=== PATIENT | male | born 1950 | race Caucasian/White ===

== ENCOUNTER 2019-07-31 10:12 | Outpatient (CLI) | payer MEDICARE, SELFPAY ==
[2019-07-31 10:49] LABS: Hematocrit 41.9 % (42.0-52.0); Hemoglobin 13.5 g/dL (14.0-18.0)
[2019-07-31 10:56] LABS: Estimated Glomerular Filt Rate 50; Glucose 89 mg/dL (75-110)
== END 2019-07-31 10:13 | disposition home or self-care (01) ==
PROVIDERS: PCP Internal Medicine; Visit Provider Orthopaedic Surgery
DX: Z01.818 Encounter for other preprocedural examination (principal); M17.0 Bilateral primary osteoarthritis of knee; I10 Essential (primary) hypertension; E78.5 Hyperlipidemia, unspecified; Z87.891 Personal history of nicotine dependence
CPT/HCPCS: 36415; 82040; 82565; 82947; 85014; 85018

== ENCOUNTER 2019-08-08 09:51 | Outpatient (CLI) | payer MEDICARE, SELFPAY ==
--- NOTE | 2019-08-08 10:50 | ECG_ITS ---
Measurements Intervals [place] Rate: 50 P: 72 KS: 180 QRS: -10 QRSD: 102 T: 69 QT: 401 QTc: 367 Interpretive Statements SINUS BRADYCARDIA BORDERLINE ST-T WAVE ABNORMALITY- HIGH LATERAL LEADS BASELINE ARTIFACT- I, II, III, AVR, AVL, AVF BORDERLINE ECG Electronically Signed On 08-08-2019 11:32:32 CDT by Jeremiah Rahman D.O.
[2019-08-08 11:15] LABS: Basophils Percent Auto 0.5 % (0.2-1.2); Eosinophils Absolute Auto 0.1 K/mm3 (0-0.3); Eosinophils Percent Auto 1.5 % (0-4.4); Hematocrit 41.8 % (42.0-52.0); Hemoglobin 13.6 g/dL (14.0-18.0); Immature Granulocyte Absolute 0.02 K/mm3 (0.00-0.031); Immature Granulocyte Percent A 0.3 % (0-0.5); Lymphocytes Absolute Auto 1.44 K/mm3 (0.9-3.2); Lymphocytes Percent Auto 19.4 % (18.3-44.2); Mean Corpuscular HGB Conc 32.5 g/dl (32-36); Mean Corpuscular Hemoglobin 30.3 pg (26-34); Mean Corpuscular Volume 93.1 fl (80-100); Mean Platelet Volume 10.7 fl (7.4-10.4); Monocytes Absolute Auto 0.5 K/mm3 (0.1-0.6); Monocytes Percent Auto 6.2 % (2.6-8.5); Neutrophils Absolute Auto 5.3 K/mm3 (1.3-6.7); Neutrophils Percent Auto 72.1 % (45.5-73.1); Platelet Count Result 259 k/mm3 (150-375); Red Blood Count 4.49 M/mm3 (4.6-6.20); Red Cell Distribution Width 12.9 % (11.5-14.5); White Blood Count 7.4 K/mm3 (4.5-10.0)
[2019-08-08 11:26] LABS: Hemoglobin A1C 5.5 % (<5.7)
[2019-08-08 11:27] LABS: Urine Cotinine POSITIVE
== END 2019-08-08 09:52 | disposition home or self-care (01) ==
LOC: ANHSURGERY 09:53
PROVIDERS: PCP Internal Medicine; Visit Provider Orthopaedic Surgery
DX: Z01.818 Encounter for other preprocedural examination (principal); M17.12 Unilateral primary osteoarthritis, left knee; I10 Essential (primary) hypertension; Z79.899 Other long term (current) drug therapy
CPT/HCPCS: 36415; 80307; 83036; 85025; 87081; 93005

== ENCOUNTER 2020-06-11 06:58 | Outpatient (CLI) | payer MEDICARE, SELFPAY ==
--- NOTE | ~2020-06-11 | CT_ITS ---
EXAMINATION: CT chest high resolution wo ma DATE: 06/11/2020 07:25 INDICATION: Solitary pulmonary nodule TECHNIQUE: Computed tomography (CT) of the chest was performed without intravenous contrast. The dose -length product was 290.33 mGy-cm. Automated exposure control and iterative reconstruction technique were employed. COMPARISON: Comparison to multiple prior studies sequentially, with oldest reviewed study dated 08/08. FINDINGS: There is atherosclerosis of the aorta. There are calcified mediastinal lymph nodes, consist ent with chronic granulomatous disease. No thoracic lymphadenopathy. There is coronary atherosclerosi s. Heart size normal. No significant pleural or pericardial effusion. There are gallstones. There are bilateral calcified pleural plaques, consistent with previous asbestos exposure. Possible subtle int erval enlargement of left lower lobe nodule measuring 9 x 8 mm compared with 8 x 7 mm on 08/08/2017, a lthough this could be due to technique. No focal airspace consolidation. Calcified granuloma in the r ight middle lobe. No new pulmonary nodules or masses. There are surgical changes in the right humeral head. Moderate thoracic spondylosis with accentuated kyphosis. Generalized demineralization. IMPRESSION: 1. Possible subtle enlargement of left lower lobe noncalcified nodule measuring 9 x 8 mm compared wit h 8 x 7 mm on 08/08/2017. Alternatively, this could be related to technical differences. No significan t alteration in appearance on coronal reconstructions. Consider correlation with pet/CT scan. 2:: Calcified bilateral pleural plaques, consistent with previous asbestos exposure. 3: Cholelithiasis. Reviewed, dictated and finalized at location A. IMPRESSION: 1. Possible subtle enlargement of left lower lobe noncalcified nodule measuring 9 x 8 mm compared with 8 x 7 mm on 08/08/2017. Alternatively, this could be rel ated to technical differences. No significant alteration in appearance on coron al reconstructions. Consider correlation with pet/CT scan. 2:: Calcified bilateral pleural plaques, consistent with previous asbestos expo sure. 3: Cholelithiasis.
== END 2020-06-11 06:59 | disposition home or self-care (01) ==
PROVIDERS: PCP Internal Medicine; Visit Provider Internal Medicine
DX: R91.1 Solitary pulmonary nodule (principal); K80.20 Calculus of gallbladder without cholecystitis without obstruction
CPT/HCPCS: 71250

== ENCOUNTER 2021-07-23 07:27 | Outpatient (CLI) | payer MEDICARE, SELFPAY ==
--- NOTE | ~2021-07-23 | CT_ITS ---
EXAMINATION: CT lung screening DATE: 07/23/2021 07:46 INDICATION: Personal history of nicotine dependence, current smoker with 90 to pack year history TECHNIQUE: Computed tomography (CT) of the chest was performed without intravenous contrast. The dose -length product (DLP) was 143.57 mGy-cm. Automated exposure control and iterative reconstruction tech [employer] were employed. COMPARISON: 06/11/2020, 08/08/2017 FINDINGS: There is mild emphysema. Mild atelectasis is noted in the lungs. A 9 mm nodule of the left lower lobe is minimally changed since the 2018 comparison. The lungs are free of focal airspace opaci ties. There is no pleural effusion or pneumothorax. No pathologically enlarged thoracic lymph nodes a re identified. The heart size is normal. Calcified pulmonary nodules and calcified mediastinal lymph nodes are consistent with old granulomatous disease. Calcified pleural plaques are noted on the right which can be seen in the setting of prior asbestos exposure. Calcified coronary artery atheroscleros is is noted. Stones are present in the nondistended gallbladder. Suture anchors are noted in the righ t humeral head. There are bridging osteophytes at multiple levels in the spine, consistent with diffu se idiopathic skeletal hyperostosis (DISH). IMPRESSION: 1. Lung-RADS category 2: Benign appearance or behavior. Continue annual screening with noncontrast lo w-dose chest CT in 12 months. Reviewed, dictated and finalized at location B. IMPRESSION: 1. Lung-RADS category 2: Benign appearance or behavior. Continue annual screeni ng with noncontrast low-dose chest CT in 12 months.
== END 2021-07-23 07:28 | disposition home or self-care (01) ==
PROVIDERS: PCP Internal Medicine; Visit Provider Internal Medicine
DX: Z12.2 Encounter for screening for malignant neoplasm of respiratory organs (principal); Z87.891 Personal history of nicotine dependence
CPT/HCPCS: 71271

== ENCOUNTER 2022-01-29 09:24 | Outpatient (CLI) | payer MEDICARE, SELFPAY ==
--- NOTE | 2022-01-29 09:41 | ECHO_ITS ---
Patient Info Name: Simon Shaffer Age: 71 years : 1950 Gender: Male Ht: 69 in Wt: 180 lbs BSA: 2.01 m2 HR: 53 bpm BP: 148 / 74 mmHg Technical Quality: Good Exam Date: 01/29/2022 10:06 AM Exam Location: [facility] Patient Status: Outpatient Admit Date: 01/29/2022 Staff Ordering Physician: Ben Goodman APRN Control Technician: Emily Mora RDCS Attending Provider: Ben Goodman APRN Referring Physician: Rex GOOD; Exam Type: CA echo doppler color flow Study Info Indications R01.1 - Cardiac murmur, unspecified Complete two-dimensional, color flow and Doppler transthoracic echocardiogram is performed. Summary 1. Complete two-dimensional, color flow and Doppler transthoracic echocardiogram is performed. 2. Left ventricular chamber dimension is normal. 3. Left ventricular systolic function is normal, estimated at 55-60%. 4. There is moderate concentric increased left ventricular wall thickness. 5. The left ventricular diastolic function is grade I diastolic dysfunction. 6. E/e' 7 is not elevated. 7. Global longitudinal strain is abnormal at -13.7%. 8. Left atrial chamber dimension is mildly enlarged. 9. Right atrial chamber dimension is mildly enlarged. 10. The aortic valve is not well visualized. Cannot determine number of aortic valve leaflets. 11. There is no aortic valve stenosis based on measured gradients and valve area. However, visually the valve appears to be at least moderate aortic stenosis. Consider ELIZABETH if clinically indicated. 12. There is severe aortic valve sclerosis. 13. There is trace aortic valve regurgitation. 14. The mitral valve has mildly calcified annulus. 15. There is trace tricuspid valve regurgitation. 16. No pulmonary hypertension, estimated pulmonary arterial systolic pressure is 31 mmHg. 17. There is trace pulmonic regurgitation. Left Ventricle E/e' 7 is not elevated. Global longitudinal strain is abnormal at -13.7%. Left ventricular chamber dimension is normal. Left ventricular systolic function is normal, estimated at 55-60%. There is moderate concentric increased left ventricular wall thickness. The left ventricular diastolic function is grade I diastolic dysfunction. Right Ventricle Right ventricular systolic function is normal and with normal TAPSE 2.8 cm. Right ventricular chamber dimension is normal. Left Atria Left atrial chamber dimension is mildly enlarged. Right Atria Right atrial chamber dimension is mildly enlarged. Aortic Valve The aortic valve is not well visualized. Cannot determine number of aortic valve leaflets. There is no aortic valve stenosis based on measured gradients and valve area. However, visually the valve appears to be at least moderate aortic stenosis. Consider ELIZABETH if clinically indicated. There is severe aortic valve sclerosis. There is trace aortic valve regurgitation. Pulmonic Valve There is trace pulmonic regurgitation. Mitral Valve The mitral valve has mildly calcified annulus. There is no mitral valve stenosis. There is no mitral valve regurgitation. Tricuspid Valve There is trace tricuspid valve regurgitation. No pulmonary hypertension, estimated pulmonary arterial systolic pressure is 31 mmHg. Pericardium/Pleural There is no pericardial effusion. Inferior Vena Cava Normal inferior vena cava with >50% collapse upon inspiration consistent with normal right atrial pressure, 5 mmHg. Aorta The aortic root size at the sinus of Valsalva is normal.
== END 2022-01-29 09:25 | disposition home or self-care (01) ==
PROVIDERS: PCP Internal Medicine; Visit Provider Nurse Practitioner
DX: R01.1 Cardiac murmur, unspecified (principal); I10 Essential (primary) hypertension; I35.1 Nonrheumatic aortic (valve) insufficiency
CPT/HCPCS: 93306

== ENCOUNTER 2022-08-03 09:23 | Outpatient (CLI) | payer MEDICARE, SELFPAY ==
--- NOTE | ~2022-08-03 | CT_ITS ---
EXAMINATION: CT lung screening DATE: 08/03/2022 10:05 INDICATION: Personal history of nicotine dependence. TECHNIQUE: Computed tomography (CT) of the chest was performed without intravenous contrast. The dose -length product was 178.55 mGy-cm. Automated exposure control and iterative reconstruction technique were employed. COMPARISON: Comparison to multiple prior studies sequentially, with oldest reviewed study dated 08/08. FINDINGS: No significant change to 9 mm left lower lobe nodule. There is evidence for chronic granulo matous disease in the mediastinum, right hilum. No thoracic lymphadenopathy. Mild emphysema. Heart si ze normal. There is atherosclerosis of the aorta and coronary arteries. There are gallstones. There a re punctate bilateral nonobstructing renal stones. No significant pleural or pericardial effusion. No endobronchial lesions. No pneumothorax. Calcified granuloma present right middle lobe. No new pulmon danial nodules or masses. Moderate thoracic spondylosis. There are residual aspects of surgical screws i n the right humeral head. IMPRESSION: 1. Lung-RADS category 2: Benign appearance or behavior. Continue annual screening with noncontrast lo w-dose chest CT in 12 months. Reviewed, dictated and finalized at location L. IMPRESSION: 1. Lung-RADS category 2: Benign appearance or behavior. Continue annual screeni ng with noncontrast low-dose chest CT in 12 months.
== END 2022-08-03 09:24 | disposition home or self-care (01) ==
PROVIDERS: PCP Family Medicine; Visit Provider Nurse Practitioner
DX: Z12.2 Encounter for screening for malignant neoplasm of respiratory organs (principal); Z87.891 Personal history of nicotine dependence
CPT/HCPCS: 71271

== ENCOUNTER 2022-09-17 13:05 | Outpatient (CLI) | payer MEDICARE, SELFPAY ==
--- NOTE | 2022-09-17 13:20 | ECHO_ITS ---
Patient Info Name: Simon Shaffer Age: 72 years : 1950 Gender: Male Ht: 70 in Wt: 178 lbs BSA: 2.01 m2 HR: 54 bpm BP: 131 / 73 mmHg Technical Quality: Fair Exam Date: 09/17/2022 1:37 PM Exam Location: [facility] Patient Status: Outpatient Admit Date: 09/17/2022 Staff Ordering Physician: Jeremiah Rahman DO [employer]: Emily Mora RDCS Attending Provider: Jeremiah Rahman DO Referring Physician: Josiah DAMON; Exam Type: CA echo doppler color flow Study Info Indications I35.0 - Nonrheumatic aortic (valve) stenosis Complete two-dimensional, color flow and Doppler transthoracic echocardiogram is performed. Summary 1. Complete two-dimensional, color flow and Doppler transthoracic echocardiogram is performed. 2. Left ventricular chamber dimension is normal. 3. Left ventricular systolic function is normal, estimated at 60-65%. 4. There is mild concentric increased left ventricular wall thickness. 5. The left ventricular diastolic function is grade I diastolic dysfunction. 6. E/e' 5 is not elevated. 7. There is moderate aortic valve sclerosis. 8. There is mild to moderate aortic valve stenosis with a peak velocity of 276 cm/s, mean gradient of 15 mmHg, and aortic valve area of 1.7 cm2. 9. Mild pulmonary hypertension, estimated pulmonary arterial systolic pressure is 45 mmHg. Left Ventricle E/e' 5 is not elevated. Left ventricular chamber dimension is normal. Left ventricular systolic function is normal, estimated at 60-65%. There is mild concentric increased left ventricular wall thickness. The left ventricular diastolic function is grade I diastolic dysfunction. Right Ventricle Right ventricular systolic function is normal and with normal TAPSE 2.4 cm. Right ventricular chamber dimension is normal. Left Atria Left atrial chamber dimension is normal. Right Atria Right atrial chamber dimension is normal. Aortic Valve The aortic valve is trileaflet. There is moderate aortic valve sclerosis. There is mild to moderate aortic valve stenosis with a peak velocity of 276 cm/s, mean gradient of 15 mmHg, and aortic valve area of 1.7 cm2. There is no aortic valve regurgitation. Pulmonic Valve There is no pulmonic regurgitation. Mitral Valve There is no mitral valve stenosis. There is no mitral valve regurgitation. Tricuspid Valve There is no tricuspid valve regurgitation. Mild pulmonary hypertension, estimated pulmonary arterial systolic pressure is 45 mmHg. Pericardium/Pleural There is no pericardial effusion. Inferior Vena Cava Normal inferior vena cava with >50% collapse upon inspiration consistent with normal right atrial pressure, 5 mmHg. Aorta The aortic root size at the sinus of Valsalva is normal. Left Ventricular Outflow Tract Name Value Normal LVOT 2D LVOT Diameter 2.1 cm LVOT Doppler LVOT Peak Gradient 6 mmHg LVOT Mean Gradient 3 mmHg LVOT VTI 27 cm LVOT VTI/AV VTI Ratio 0.5 LVOT Stroke Volume 93 ml LVOT CO 4.2 l/min LVOT CI 2.1 l/min/m2 Pulmonic Valve ------
== END 2022-09-17 13:06 | disposition home or self-care (01) ==
LOC: ANHCARD 13:06
PROVIDERS: Visit Provider Internal Medicine Cardiovascular Disease
DX: I35.0 Nonrheumatic aortic (valve) stenosis (principal); I27.20 Pulmonary hypertension, unspecified; I35.8 Other nonrheumatic aortic valve disorders
CPT/HCPCS: 93306